=== PATIENT | male | born 1975 | race Two or more races ===

== ENCOUNTER 2022-12-11 08:52 | Emergency (ER) | payer OTHER ==
[~2022-12-11] VITALS: Ht 180.3 cm; Wt 89.0 kg
[2022-12-11 09:00] VITALS: BP 143/79
[2022-12-11 09:28] LABS: Basophils # (auto) 0 10 ^3/uL (0-0.2); Basophils % (auto) 0.3 % (0.0-2.0); Eosinophils # (auto) 0.2 10 ^3/uL (0-0.8); Eosinophils % (auto) 3.4 % (0.0-7.0); Hemoglobin 15.1 g/dL (13.5-17.5); Lymphocytes # (auto) 1.6 10 ^3/uL (0.4-5.4); Lymphocytes % (auto) 22.4 % (10.0-50.0); Mean Corpuscular Hemoglobin 28.1 pg (28.0-32.0); Mean Corpuscular Hgb Conc. 34.4 g/dL (32.0-36.0); Mean Corpuscular Volume 81.6 fL (80.0-100.0); Monocytes # (auto) 0.4 10 ^3/uL (0-1.3); Monocytes % (auto) 5.4 % (0.0-12.0); Neutrophils % (auto) 68.5 % (37.0-80.0); Nucleated Red Blood Cells % 0.1 %; Red Blood Cells 5.39 10^6/uL (4.5-5.90); Red Cell Distribution Width 14.2 % (11.8-14.3); White Blood Cell 7.2 10^3/uL (4.4-10.8)
[2022-12-11 09:41] LABS: Urine Bacteria FEW /hpf (None Seen); Urine Blood Negative /uL (Negative); Urine Hyaline Cast FEW /lpf (0 - 2); Urine Mucus FEW (None Seen); Urine Specific Gravity 1.029 (1.001-1.035); Urine WBC 1 /hpf (0 - 3)
[2022-12-11 09:51] LABS: Albumin 3.6 g/dL (3.4-5.0); BUN/Creatinine Ratio 7.8 (10.0-20.0); Calcium 8.9 mg/dL (8.5-10.1); Potassium 4.1 mmol/L (3.5-5.1)
[2022-12-11 09:55] LABS: Bilirubin, Total 0.5 mg/dL (0.2-1.0); Total Protein 7.7 g/dL (6.4-8.2)
[2022-12-11] MEDS ORDERED: CLINDAMYCIN 600 MG/4 ML VL IM ONE (10:00)
[2022-12-11] MEDS ORDERED: cefTRIAXone SOD 1,000 MG VL IM ONE (10:00)
[2022-12-11] MEDS ORDERED: HYDROcodone-ACET 10/325MG TAB PO ONE (10:15)
[2022-12-11] MEDS ORDERED: LIDOCAINE 1% HCL (LOCAL ANESTH.) INJ 20ML MDV ONE (10:23)
[2022-12-11] MEDS ORDERED: CLINDAMYCIN HCL 150 MG CAP PO ONE (10:30)
[2022-12-11] MEDS ORDERED: CLIN300C8 PO (11:10)
[2022-12-11] MEDS ORDERED: CEPH-510 PO (11:10)
[2022-12-11] MEDS ORDERED: IBU600T PO (11:10)
== END 2022-12-11 11:46 | disposition home or self-care (01) ==
LOC: ER 08:52
DX: N48.22 Cellulitis of corpus cavernosum and penis (principal); I10 Essential (primary) hypertension; F17.210 Nicotine dependence, cigarettes, uncomplicated
CPT/HCPCS: 36415; 80053; 81001; 83605; 85025; 87040; 96372; 99283; J0696; J2001